=== PATIENT | female | born 1995 | race Two or more races ===

== ENCOUNTER 2020-06-03 10:02 | Outpatient (CLI) | payer OTHER ==
[~2020-06-03] VITALS: Ht 170.2 cm; Wt 65.8 kg
== END 2020-06-03 17:16 | disposition home or self-care (01) ==
LOC: OFIC 805 10:02
PROVIDERS: ATTEND Otolaryngology
DX: K11.1 Hypertrophy of salivary gland (principal); K11.9 Disease of salivary gland, unspecified

== ENCOUNTER 2020-06-24 09:22 | Outpatient (CLI) | payer OTHER | END 2020-06-24 14:39 | disposition home or self-care (01) | LOC: OFIC 805 09:22 | PROVIDERS: ATTEND Otolaryngology | DX: K11.6 Mucocele of salivary gland (principal) ==

== ENCOUNTER 2023-02-28 07:00 | Day surgery (SDC) | payer OTHER ==
[~2023-02-28] VITALS: Ht 170.2 cm; Wt 72.6 kg
== END 2023-02-28 15:40 | disposition home or self-care (01) ==
LOC: CIR.AMB 07:00
PROVIDERS: ATTEND Otolaryngology
DX: K11.23 Chronic sialoadenitis (principal); Q38.4 Congenital malformations of salivary glands and ducts; Z20.822 Contact with and (suspected) exposure to COVID-19; Z20.828 Contact with and (suspected) exposure to other viral communicable diseases